=== PATIENT | female | born 1935 | race Caucasian/White ===

== ENCOUNTER 2016-09-10 11:49 | Emergency (ER) | payer MEDICARE, OTHER ==
[~2016-09-10] VITALS: Ht 157.5 cm; Wt 77.3 kg
[2016-09-10] MEDS ORDERED: BENA20TA PO (12:05)
[2016-09-10] MEDS ORDERED: ZOCO40TA PO (12:05)
[2016-09-10] MEDS ORDERED: hydrALAZINE INJ 20 MG/ML VIAL IV STA (12:58)
[2016-09-10 13:42] LABS: BASO # 0.1 K/mm3 (0.0-0.2); BASO % 1.1 % (0.0-1.0); EOS # 0.1 K/mm3 (0.0-0.50); EOS % 1.4 % (0.0-3.0); LARGE UNSTAINED CELL # 0.1 K/mm3 (0.0-0.4); LARGE UNSTAINED CELL % 1.3 % (0.0-4.0); LYMPH # 1.7 K/mm3 (1.5-4.5); LYMPH % 18.9 % (24.0-44.0); MEAN CORPUSCULAR HEMOGLOBIN 28.8 pg (27.0-33.0); MEAN CORPUSCULAR HGB CONC 34.8 g/dl (32.0-36.5); MEAN CORPUSCULAR VOLUME 82.9 fl (80.0-96.0); MONO # 0.6 K/mm3 (0.0-0.8); MONO % 6.6 % (0.0-5.0); NEUTROPHILS % 70.7 % (36.0-66.0); PLATELET COUNT, AUTOMATED 221 k/mm3 (150-450); RED CELL DISTRIBUTION WIDTH 12.8 % (11.5-14.5); WHITE BLOOD COUNT 8.5 K/mm3 (4.0-10.0)
[2016-09-10 13:57] LABS: ANION GAP 5 MEQ/L (8-16); BLOOD UREA NITROGEN 8 MG/DL (7-18); CALCIUM LEVEL 9.5 MG/DL (8.8-10.2); CARBON DIOXIDE LEVEL 29 MEQ/L (21-32); CHLORIDE LEVEL 102 MEQ/L (98-107); CREATININE FOR GFR 0.61 MG/DL (0.55-1.02); GLOMERULAR FILTRATION RATE > 60.0 (>32); GLUCOSE, FASTING 111 MG/DL (83-110); POTASSIUM SERUM 4.1 MEQ/L (3.5-5.1); SODIUM LEVEL 136 MEQ/L (136-145)
[2016-09-10 14:06] VITALS: BP 231/100
--- NOTE | 2016-09-10 14:23 | REP ---
CHEST X-RAY: Two views. HISTORY: Hypertension. FINDINGS: Frontal and lateral views of the chest show clear symmetrically aerated lungs and sharp pleural angles. Heart is not enlarged. Pulmonary vasculature is not increased. There are some mild degenerative changes in the thoracic spine. IMPRESSION: No active disease. Signed by Ralph Alamo MD 09/10/2016 04:34 P
[2016-09-10] MEDS ORDERED: MACR100C43 PO (16:16)
[2016-09-10 16:38] VITALS: BP 179/84
--- NOTE | 2016-09-11 08:26 | ECGEPIP ---
Stationary ECG Study [facility] - ED Test Date: 2016-09-10 Pat Name: SAHRA CARBAJAL Department: Room: - Gender: F Business Economist: moises : 1935 Requested By: JORDANA ALVAREZ Order Number: [id number] Reading MD: Pop Hankins Measurements Intervals [place] Rate: 77 P: 75 [place]: 165 QRS: -9 QRSD: 91 T: 25 QT: 367 QTc: 416 Interpretive Statements SINUS RHYTHM MINIMAL VOLTAGE CRITERIA FOR LVH, CONSIDER NORMAL VARIANT INFERIOR MYOCARDIAL INFARCTION, OF INDETERMINATE AGE NO PRIORS Electronically Signed On 09-11-2016 8:26:19 EDT by Pop Hankins
== END 2016-09-10 16:46 | disposition home or self-care (01) ==
LOC: EDBD 11:49 → M ED 11:49
DX: I10 Essential (primary) hypertension (principal); N30.00 Acute cystitis without hematuria; E78.00 Pure hypercholesterolemia, unspecified; M85.80 Other specified disorders of bone density and structure, unspecified site; Z79.899 Other long term (current) drug therapy

== ENCOUNTER 2017-08-19 14:31 | Emergency (ER) | payer MEDICARE, OTHER ==
[2017-08-19 15:08] LABS: HEMATOCRIT 43.3 % (36.0-47.0); HEMOGLOBIN 15.2 g/dl (12.0-15.5); MEAN CORPUSCULAR HEMOGLOBIN 28.6 pg (27.0-33.0); MEAN CORPUSCULAR HGB CONC 35.1 g/dl (32.0-36.5); MEAN CORPUSCULAR VOLUME 81.4 fl (80.0-96.0); PLATELET COUNT, AUTOMATED 209 10^3/uL (150-450); RED BLOOD COUNT 5.32 10^6/uL (4.00-5.40); RED CELL DISTRIBUTION WIDTH 12.3 % (11.5-14.5); WHITE BLOOD COUNT 8.7 10^3/uL (4.0-10.0)
[2017-08-19 15:32] LABS: ALBUMIN 4.2 GM/DL (3.2-5.2); ALBUMIN/GLOBULIN RATIO 1.27 (1.00-1.93); ALKALINE PHOSPHATASE 41 U/L (45-117); ALT/SGPT 30 U/L (12-78); ANION GAP 9 MEQ/L (8-16); AST/SGOT 18 U/L (7-37); BILIRUBIN,TOTAL 0.7 MG/DL (0.2-1.0); BLOOD UREA NITROGEN 9 MG/DL (7-18); CALCIUM LEVEL 9.3 MG/DL (8.8-10.2); CARBON DIOXIDE LEVEL 26 MEQ/L (21-32); CHLORIDE LEVEL 102 MEQ/L (98-107); CREATININE FOR GFR 0.61 MG/DL (0.55-1.30); GLOMERULAR FILTRATION RATE > 60.0 (>32); GLUCOSE, FASTING 113 MG/DL (70-100); POTASSIUM SERUM 4.1 MEQ/L (3.5-5.1); SODIUM LEVEL 137 MEQ/L (136-145); TOTAL PROTEIN 7.5 GM/DL (6.4-8.2)
== END 2017-08-19 16:22 | disposition home or self-care (01) ==
LOC: M ED 14:31
DX: I10 Essential (primary) hypertension (principal); E78.70 Disorder of bile acid and cholesterol metabolism, unspecified; Z79.899 Other long term (current) drug therapy
CPT/HCPCS: 93005